=== PATIENT | male | born 1990 | race Two or more races ===

== ENCOUNTER 2018-04-22 21:24 | Emergency (ER) | payer SELFPAY ==
[~2018-04-22] VITALS: Ht 185.4 cm; Wt 83.9 kg
[2018-04-22] MEDS ORDERED: IOHEXOL 300 MG/ML 100ML BOTTLE IJ ONE (23:07)
[2018-04-22] MEDS ORDERED: NEOMYCIN-BACITRACIN-POLYM UNITDOSE PKG TOP OINT TOP ONE (23:45)
[2018-04-22] MEDS ORDERED: LIDOCAINE W/ EPINEPHRINE 1% 20ML VIAL ID ONE (23:45)
[2018-04-22] MEDS ORDERED: TETANUS-DIPTH-ACEL PERTUSSIS 0.5ML SYRG IM ONE (23:45)
[2018-04-22] MEDS ORDERED: LIDOCAINE W/ EPINEPHRINE 1% 20ML VIAL ONE (23:49)
[2018-04-23 00:49] VITALS: BP 133/74
[2018-04-23] MEDS ORDERED: ceFAZolin 1GM/100ML 50 ML IV ONE (02:30)
== END 2018-04-23 02:34 | disposition home or self-care (01) ==
LOC: EDBD 21:24 → ER 21:29
DX: S02.81XA Fracture of other specified skull and facial bones, right side, initial encounter for closed fracture (principal); S02.19XA Other fracture of base of skull, initial encounter for closed fracture; S01.111A Laceration without foreign body of right eyelid and periocular area, initial encounter; S09.90XA Unspecified injury of head, initial encounter; S20.219A Contusion of unspecified front wall of thorax, initial encounter; F17.210 Nicotine dependence, cigarettes, uncomplicated; V43.02XA Car driver injured in collision with other type car in nontraffic accident, initial encounter; Y93.89 Activity, other specified; Y99.8 Other external cause status; Y92.488 Other paved roadways as the place of occurrence of the external cause
CPT/HCPCS: 12013; 70450; 70486; 71260; 72125; 74177; 90471; 90715; 99285; Q9967